=== PATIENT | male | born 1955 | race Caucasian/White ===

== ENCOUNTER → 2019-06-28 | Outpatient (CLI) | payer MEDICARE ==
--- NOTE | 2019-06-28 09:47 | CT ---
EXAMINATION TYPE: CT foot LT wo con, CT foot RT wo con DATE OF EXAM: 06/28/2019 COMPARISON: Outside x-rays June 19, 2019. HISTORY: Lt calcaneus fx (accession [id number]), bilateral calcaneus fx (accession [id number]) pain and b ilateral feet with bilateral calcaneal fractures. CT DLP: 221.5 mGycm Automated exposure control for dose reduction was used. FINDINGS: CT scan of bilateral feet is performed. Left foot shows acute comminuted nondisplaced fracture with involvement of the subtalar joint, there is extension into the posterior articular surface. There is extension through the lateral surface of the most posterior line coronal images 8 through 13. The most prominent displacement centrally near subtalar joint measuring up to 4 mm where there is mor e comminuted fracture identified. Second vertical component extends to the superior articular surface or subtalar joint with medial and lateral extension and slight step-off coronal image 27. These line s are not contiguous. There is no significant central fragment depression near subtalar joint. Calcan eal navicular joint is preserved. Distal tibia and fibular are intact. Ankle mortise symmetry is maintained. Right foot shows similar acute comminuted fracture with posterior line extending to the lateral artic ular surface of the posterior aspect of calcaneus but there is much more prominent comminuted fractur e centrally with more prominent displacement and more fracture lines. Findings correlate with outside x-ray. There are multiple small fracture fragments identified. Similar to left foot there is extensi on to the subtalar joint. When scanning coronal images from posterior to anterior aspect there are at least 2 fracture lines through the posterior aspect of the facet along lateral and medial aspects wi th a central fracture fragment that show 4 mm central depression coronal image 21 before level of sub talar joint. There is extension even anteriorly to level of the calcaneocuboid joint axial image 48. This ankle mortise symmetry is preserved. Distal tibia and fibula are intact. Lisfranc joints are maintained bilaterally. Midfoot articulations are preserved. IMPRESSION: Type 4 Edwards classification fracture left calcaneus with suspected type 2b Edwards clas sification fracture right calcaneus as detailed above.
== END | disposition home or self-care (01) ==
LOC: RADCTMAIN 06:55
PROVIDERS: ATTEND Orthopaedic Surgery
DX: S92.002A Unspecified fracture of left calcaneus, initial encounter for closed fracture (principal)

== ENCOUNTER → 2023-12-16 | Outpatient (CLI) | payer MEDICARE ==
--- NOTE | 2023-12-16 14:10 | XR ---
EXAMINATION TYPE: XR cervical spine 3 views, XR lumbar spine 3V DATE OF EXAM: 12/16/2023 Comparison: None Clinical History: 68-year-old male M54.50 LOW BACK PAIN S39.92XA UNSPECIFIED INJURY O Findings: Cervical spine: No predental space widening or prevertebral soft tissue swelling. Moderate disc/degenerative change f rom C3 through C7 levels with slightly narrowed, some endplate irregularity and spondylosis. There ap pears to be a congenital interbody ankylosis at C7-T1. Alignment is maintained. Normal odontoid view. [id number] uncovertebral joint and facet arthropathy. Bilateral carotid bifurcation calcificat ions noted. Lumbar spine: Cholecystectomy clips. Mild multilevel degenerative disc disease. Facet arthropathy lower lumbar spin e. There is one anterolisthesis noted at L5-S1 with accentuated lower lumbar lordosis. Vertebral body heights are preserved. Remaining alignment maintained. Impression: Cervical spine: 1. Moderate disc/endplate degenerative changes especially C3-C7 levels. 2. Congenital interbody ankylosis C7-T1. 3. No prevertebral soft tissue swelling or malalignment. Lumbar spine: 4. Facet arthropathy lower lumbar spine. Grade 1 anterolisthesis at L5-S1 may be on a degenerative ba sis or could be due to L5 pars defects. CT for more detailed assessment of the bony anatomy if clinic ally indicated. 5. Mild multilevel degenerative disc disease. 6. No vertebral compression collapse.
== END | disposition home or self-care (01) ==
LOC: RADXRMAIN 13:05
PROVIDERS: ATTEND Family Medicine
DX: S39.92XA Unspecified injury of lower back, initial encounter (principal); M43.17 Spondylolisthesis, lumbosacral region; M47.812 Spondylosis without myelopathy or radiculopathy, cervical region; M47.816 Spondylosis without myelopathy or radiculopathy, lumbar region; M50.30 Other cervical disc degeneration, unspecified cervical region; M51.36 Other intervertebral disc degeneration, lumbar region
CPT/HCPCS: 72040; 72100

== ENCOUNTER → 2024-05-26 | Outpatient (CLI) | payer MEDICARE ==
[2024-05-26 09:37] VITALS: BP 131/79; PULSE 79; RESP 19; TEMP 97.6
--- NOTE | 2024-05-26 14:41 | P.PAINPG ---
Objective - Vital Signs Vital signs: Intake & Output 05/25/24 05/26/24 05/26/24 18:59 06:59 18:59 Weight 189 kg PQRS Measure Charge Sheet Comment: HISTORY OF PRESENT ILLNESS: A 68 yr old male as a referral from Elly MCNALLY presents today w severe and chronic LBP > 1 yr secondary to radiculopathy, spondylosis and facet arthropathy without myelopathy for evaluation. Pt states pain level is provoked at 6 /10 in intensity, constant, localized in the lumbar spine, predominantly axial, sore in character w occasional shooting pain towards the BLEs. Pain is provoked by . Pain is alleviated by physician guided home exercises/ stretches 4-5 times weekly since 2022, medications (Edwards), THC products, heat, topical BioFreeze, repositioning and rest . Oswestry axial pain score at 24. PMH: OA, ADD/ ADHD, MDD PSH: SH: Daily tobacco use, Occ ETOH use, Cannabis use FH: Non contributory All: See list Meds: See list REVIEW OF ORGAN SYSTEMS: CONSTITUTIONAL: No fevers or chills. No recent weight loss. NEUROLOGICAL: + numbness and tingling along the distal extremities. No seizure disorders or headaches. MUSCULOSKELETAL: + pain PSYCHIATRIC: Denies current depression or suicidal thoughts. Physical Examinations : Constitutional : Cooperative , not in acute distress . Neurologic : Cranial nerve II to XII intact. No focal neurological deficits. Psychiatric : alert & oriented x 3. Matching mood & appropriate affect. Judgment & insight intact. Musculoskeletal : Cervical Spine Motor strength in the deltoid and biceps: Normal right side. Normal Left side Motor strength biceps and the wrist extensors: Normal right side . Normal left side Motor strength in the triceps muscle: Normal right side. Normal left side Deep tendon reflexes: Normal at the biceps. Normal at Brachioradialis. Normal at triceps Vertebral body tenderness to deep palpation over Cervical facet loading test: positive bilaterally Spurling test: positive bilaterally Neck distraction test: positive bila terally María sign: positive bilaterally Lumbar spine Motor strength lower extremities ,thigh and legs 5/5 Right side , 5/5 Left side Deep tendon reflexes : Normal Knee Jerk. Normal Ankle Jerk Vertebral body tenderness over Henley Test positive Lumbar facet Loading Test: positive R ight / positive Left Range of motion of the lumbar spine Flexion 30 degrees, extension 10 degrees Straight Leg Raise test: Left/ Right positive at degrees Zackary test: positive right / positive left. Severe tenderness over the Sacroiliac joint on the Right / Left sides Gaenslen test: positive bilaterally Seated flexion test: positive bilaterally. Sacral spine : Severe tenderness over the Sacroiliac joint: right side / left side Range of motion: Flexion of the lumbar spine <60 degrees Range of motion: Extension of the lumbar spine <20 degrees Gaenslen's Test positive Zackary test: positive right side / left side Thigh Thrust Test Sacral Thrust Test Imaging: X ray cervical spine from 12/16/23 reviewed X ray lumbar spine from 12/16/23 reviewed Assessment/ Plan : C7-T1 interbody ankylosis, L5-S1 anterolisthesis Recommendation of MRI non contrast M54.16. All questions answered. I have spent greater than 30 minutes on patient care today. Dr Webster was available by phone for the evaluation of this patient. The time was used to review the medical records including relevant urine studies and Prescription history (MAPs), review of the available imaging, evaluation and examination of the patient, coordination of care with the medical staff and if applicable referring physicians, as well as creation of the medical record - Pain Location Neck Non-Pharmacological Interventions: Position/Reposition Pharmacological Interventions: PRN Medication PQRS Narrative: Smoking Status Current every day smoker Home Medications: Ambulatory Orders Dextroamphetamine/Amphetamine [Adderall] 30 mg PO BID 03/31/15 HYDROcodone/APAP 10-325MG [Edwards 10] 1 each PO Q6H PRN 03/31/15 PARoxetine HCL [Paxil Cr] 50 mg PO DAILY 03/31/15 Controlled Substance Measures - Controlled Substance Measures Is patient prescribed a controlled substance at discharge?: No
== END ==
LOC: PNWHC3 09:19
PROVIDERS: ATTEND Specialist
DX: M51.369 Other intervertebral disc degeneration, lumbar region without mention of lumbar back pain or lower extremity pain (principal); M47.27 Other spondylosis with radiculopathy, lumbosacral region; M43.23 Fusion of spine, cervicothoracic region; F17.210 Nicotine dependence, cigarettes, uncomplicated
CPT/HCPCS: 99202

== ENCOUNTER → 2024-06-10 | Outpatient (CLI) | payer MEDICARE ==
--- NOTE | 2024-06-10 16:21 | MR ---
EXAMINATION TYPE: MR lumbar spine wo con DATE OF EXAM: 06/10/2024 4:11 PM COMPARISON: 12/16/2023. CLINICAL INDICATION: Male, 68 years old with history of M54.16; PHH, TECHNIQUE: Multi planar, multi sequence imaging was performed utilizing: T1-weighted, T2-weighted, a nd turbo inversion recovery imaging of the lumbar spine. IV Contrast: mL (None, if empty) FINDINGS: Alignment: The lumbar vertebral bodies have preserved heights with grade 1 anterolisthesis of L5 on S 1. Cord: The conus medullaris and the distal spinal cord appear unremarkable with regards to their signa l intensity and morphology. Bones/Discs: Diffuse low signal of the vertebral bodies. Degeneration changes throughout the spine wi th osteophyte formation and facet joint arthropathy. Intervertebral disc signal is maintained. No abn ormal inversion recovery signal to suggest bony edema. T12-L1: No evidence of significant spinal canal stenosis or neural foraminal stenosis. L1-L2: No evidence of significant spinal canal stenosis or neural foraminal stenosis. L2-L3: No evidence of significant spinal canal stenosis. Facet joint arthropathy mild bilateral neura l foraminal stenosis. L3-L4: No evidence of significant spinal canal stenosis. Facet joint arthropathy mild bilateral neura l foraminal stenosis. L4-L5: No evidence of significant spinal canal stenosis. Facet joint arthropathy mild bilateral neura l foraminal stenosis. L5-S1: Disc uncovering from grade 1 anterolisthesis and facet joint arthropathy with mild spinal tosin l stenosis and moderate bilateral neural foraminal stenosis. No significant spinal canal or neural foraminal stenosis in the remainder of the visualized levels. Other findings: None. IMPRESSION: 1. No definitive evidence of disc herniation or significant spinal canal stenosis. 2. Grade 1 anterolisthesis of L5 on S1 with moderate bilateral neural foraminal stenosis. 3. Diffuse red marrow conversion can be seen in the setting of tobacco abuse, anemia, or myeloprolif erative disorder. [facility], , 06/10/2024 4:18 PM
== END | disposition home or self-care (01) ==
LOC: RADMRIMAIN 15:26
PROVIDERS: ATTEND Specialist
DX: M54.16 Radiculopathy, lumbar region (principal); M51.369 Other intervertebral disc degeneration, lumbar region without mention of lumbar back pain or lower extremity pain; M43.17 Spondylolisthesis, lumbosacral region; M48.061 Spinal stenosis, lumbar region without neurogenic claudication
CPT/HCPCS: 72148

== ENCOUNTER → 2024-06-24 | Outpatient (CLI) | payer MEDICARE ==
[2024-06-24 14:24] VITALS: BP 121/76; PULSE 84; RESP 19; TEMP 97.6
--- NOTE | 2024-06-24 15:11 | P.PAINPG ---
Objective - Vital Signs Vital signs: Intake & Output 06/23/24 06/24/24 06/24/24 18:59 06:59 18:59 Weight 72.575 kg PQRS Measure Charge Sheet Comment: HISTORY OF PRESENT ILLNESS: A 68 yr old male w at side presents today w severe and chronic LBP > 1 yr secondary to radiculopathy, spondylosis and facet arthropathy without myelopathy for evaluation. Pt states pain level is provoked at 6 /10 in intensity, constant, localized in the lumbar spine, predominantly axial, sore in character w occasional shooting pain towards the BLEs. Pain is provoked by . Pain is alleviated by physician guided home exercises/ stretches 4-5 times weekly since 2022, medications, THC products, heat, topical, repositioning and rest . Interventional procedures include Medication sinclude [place], BioFreeze, Cannabis use REVIEW OF ORGAN SYSTEMS: CONSTITUTIONAL: No fevers or chills. No recent weight loss. NEUROLOGICAL: + numbness and tingling along the distal extremities. No seizure disorders or headaches. MUSCULOSKELETAL: + pain PSYCHIATRIC: Denies current depression or suicidal thoughts. Physical Examinations : Constitutional : Cooperative , not in acute distress . Neurologic : Cranial nerve II to XII intact. No focal neurological deficits. Psychiatric : alert & oriented x 3. Matching mood & appropriate affect. Judgment & insight intact. Musculoskeletal : Cervical Spine Motor strength in the deltoid and biceps: Normal right side. Normal Left side Motor strength biceps and the wrist extensors: Normal right side . Normal left side Motor strength in the triceps muscle: Normal right side. Normal left side Deep tendon reflexes: Normal at the biceps. Normal at Brachioradialis. Normal at triceps Vertebral body tenderness to deep palpation over Cervical facet loading test: positive bilaterally Spurling test: positive bilaterally Neck distraction test: positive bilaterally María sign: positive bilaterally Lumbar spine Motor strength lower extremities ,thigh and legs 5/5 Right side , 5/5 Left side Deep tendon reflexes : Normal Knee Jerk. Normal Ankle Jerk Vertebral body tenderness over L5 Henley Test positive BL L5-S1 Lumbar facet Loading Test: positive Right / positive Left Range of motion of the lumbar spine Flexion 30 degrees, extension 10 degrees Straight Leg Raise test: Left/ Right positive at degrees Zackary test: positive right / positive left. Severe tenderness over the Sacroiliac joint on the Right / Left sides Gaenslen test: positive bilaterally Seated flexion test: positive bilaterally. Sacral spine : Severe tenderness over the Sacroiliac joint: right side / left side Range of motion: Flexion of the lumbar spine <60 degrees Range of motion: Extension of the lumbar spine <20 degrees Gaenslen's Test positive Zackary test: positive right side / left side Thigh Thrust Test Sacral Thrust Test Imaging: X ray cervical spine from 12/16/23 reviewed X ray lumbar spine from 12/16/23 reviewed MRI non contrast lumbar spine from 06/10/24 reviewed Assessment/ Plan : C7-T1 interbody ankylosis, L5-S1 anterolisthesis Recommendation of PT x 6 wks M54.16. Would benefit from JADE L5-S1 #1. All questions answered. I have spent greater than 30 minutes on patient care today. Dr Webster was available by phone for the evaluation of this patient. The time was used to review the medical records including relevant urine studies and Prescription history (MAPs), review of the available imaging, evaluation and examination of the patient, coordination of care with the medical staff and if applicable referring physicians, as well as creation of the medical record PQRS Narrative: Smoking Status Current every day smoker Narcotic Agreement Date Signed 05/26/24 Hx Alcohol Use (MH) Yes Home Medications: Ambulatory Orders Dextroamphetamine/Amphetamine [Adderall] 30 mg PO BID 03/31/15 HYDROcodone/APAP 10-325MG [[place] 10] 1 each PO Q6H PRN 03/31/15 PARoxetine HCL [Paxil Cr] 50 mg PO DAILY 03/31/15 Controlled Substance Measures - Controlled Substance Measures Is patient prescribed a controlled substance at discharge?: No
== END ==
LOC: PNWHC3 14:02
PROVIDERS: ATTEND Specialist
DX: M43.23 Fusion of spine, cervicothoracic region (principal); M43.17 Spondylolisthesis, lumbosacral region; G89.29 Other chronic pain; F17.200 Nicotine dependence, unspecified, uncomplicated
CPT/HCPCS: 99211